=== PATIENT | female | born 1970 | race Caucasian/White ===

== ENCOUNTER 2017-02-28 05:10 | Emergency (ER) | payer MEDICARE, MEDICAID ==
[2017-02-28 05:18] VITALS: BP 138/77
[2017-02-28] MEDS ORDERED: Lidocaine 1% with EPINEPHrine 1:100,000 20 ML MDV INFILT ONE (05:43)
--- NOTE | 2017-02-28 06:01 | EDM.PDOC ---
ED HPI Trauma - General Chief Complaint: Upper Extremity Injury/Pain Stated Complaint: taut hands Time Seen by Provider: 02/28/17 05:35 Source: Reports: Patient, RN, RN notes reviewed History Limitations: Reports: No limitations - History of Present Illness INITIAL COMMENTS - FREE TEXT/NARRATIVE: Patient sensory emergency room at [facility] complaining of tingling of the left hand. The patient states her symptoms began about one week ago. 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 The patient denies any injury or trauma to the left hand. The patient denies any previous surgeries to left hand. The patient states that she feels her symptoms generally over the left hand. The patient denies a left hand pain. The patient is also complaining of a possible abscess over the posterior back. The patient states that she can feel an area of hardness with pain. Symptom Onset Date: 02/21/17 Occurred When: last week Allergies/ADRs: Allergies erythromycin base Allergy (Verified 02/28/17 05:11) Other haloperidol [From Haldol] Allergy (Verified 02/28/17 05:11) Other Home Medications: Ambulatory Orders ARIPiprazole [Abilify] 20 mg PO DAILY 11/06/16 [Confirmed 02/28/17] Aspirin [Halfprin] 81 mg PO DAILY 11/06/16 [Confirmed 02/28/17] Benztropine [Cogentin] 1 mg PO BEDTIME 11/06/16 [Confirmed 02/28/17] Escitalopram [Lexapro] 30 mg PO QPM 11/06/16 [Confirmed 02/28/17] Ferrous Sulfate 325 mg PO DAILY 11/06/16 [Confirmed 02/28/17] Ibuprofen 600 mg PO TID 11/06/16 [Confirmed 02/28/17] Levothyroxine 75 mcg PO DAILY 11/06/16 [Confirmed 02/28/17] Multivitamin [Multivitamins] 1 tab PO DAILY 11/06/16 [Confirmed 02/28/17] Sennosides/Docusate Sodium [Senna-Docusate Sodium] 1 - 6 tab PO DAILY PRN [Confirmed 02/28/17] Simvastatin [Zocor] 20 mg PO BEDTIME 11/06/16 [Confirmed 02/28/17] cloZAPine [Clozapine Odt] 50 mg PO ASDIRECTED 11/06/16 [Confirmed 02/28/17] cloZAPine [Clozapine Odt] 350 mg PO BEDTIME 11/06/16 [Confirmed 02/28/17] metFORMIN [Glucophage XR] 500 mg PO BID 11/06/16 [Confirmed 02/28/17] Cephalexin 500 mg PO TID #30 capsule 02/28/17 Past Medical History Gastrointestinal History: Reports: Chronic constipation Psychiatric History: Reports: Anxiety, Depression Endocrine/Metabolic History: Reports: Other (see below) Other Endocrine/Metabolic History: borderline diabetic - Past Surgical History GI Surgical History: Reports: Appendectomy Social & Family History - Tobacco Use Smoking Status *Q: Never Smoker Review of Systems - Review of Systems Review Of Systems: See Below Constitutional: Denies: chills, fever, weakness Respiratory: Denies: Shortness of Breath, Cough Cardiovascular: Denies: chest pain, palpitations Musculoskeletal: Reports: hand pain (Left) Skin: Reports: wound (Left mid back) Neurological: Reports: Tingling (left hand). Denies: Dizziness, Headache, Numbness, Paresthesia Trauma Exam - Physical Exam Exam: See Below Exam Limited By: No limitations General Appearance: Reports: alert, no apparent distress Respiratory Exam: Reports: no respiratory distress, lungs clear, normal breath sounds Cardiovascular: Reports: regular rate, rhythm Extremities: Reports: tenderness (left volar wrist area consistent with possible carpel tunnel syndrome). Denies: pain with movement Neurologic: Reports: alert, oriented x 3 Skin: Reports: Normal color, Warm/dry, Other (infected skin abscess over the mid posterior back; area is flucuant and ready to drain; tender to palpation; erythematous) ED TRAUMA EXTREMITY PROCEDURES - I&D Site: Posterior mid back Skin prep: isopropyl alcohol (alcohol) Local anesthesia: Lidocaine: 1% with epi Local anesthetic volume: 5cc Area incised with: 11 blade Drainage: purulent, large amount Probed to break up loculations: No Packed with: none Sterile dressing: adhesive dressing Complications: No Course - Vital Signs Last Recorded V/S: Last Vital Signs Temp 36.5 C 02/28/17 05:14 Pulse 99 02/28/17 05:14 Resp 20 02/28/17 05:14 BP 138/77 02/28/17 05:14 Pulse Ox 99 02/28/17 05:14 - Orders/Labs/Meds Meds: Medications Discontinued Medications Generic Name Dose Route Start Last Admin Trade Name Matthew PRN Reason Stop Dose Admin Lidocaine/Epinephrine 20 ml 02/28/17 05:43 02/28/17 05:46 Xylocaine 1% With Epinephrine 1:100,000 INFILT 02/28/17 05:44 20 ml ONETIME ONE Administration Departure - Departure Time of Disposition: 06:01 Disposition: Home, Self-Care 01 Condition: good Clinical Impression: Carpal tunnel syndrome, left Abscess of skin and subcutaneous tissue Qualifiers: Site of cutaneous abscess: trunk Site of cutaneous abscess of trunk: back Qualified Code(s): L02.212 - Cutaneous abscess of back [any part, except buttock ] Prescriptions: Cephalexin 500 mg PO TID #30 capsule Referrals: Nimesh Vargas MD [Physician] - Forms: ED Department Discharge Additional Instructions: 1. Keep band aid on for the next 24 hours 2. Wear wrist splint especially during sleeping hours 3. May alternate Tylenol/Advil as needed for pain 4. See Dr. Vargas in clinic for referral to hand specialist 5. Keep boil area clean and dry - Problem List Review Problem List Initiated/Reviewed/Updated: Yes
== END 2017-02-28 06:16 | disposition home or self-care (01) ==
LOC: VM.ED 05:10
DX: G56.02 Carpal tunnel syndrome, left upper limb (principal); L02.212 Cutaneous abscess of back [any part, except buttock and flank]; F41.9 Anxiety disorder, unspecified; F32.9 Major depressive disorder, single episode, unspecified; Z88.1 Allergy status to other antibiotic agents; Z88.5 Allergy status to narcotic agent; Z90.49 Acquired absence of other specified parts of digestive tract; Z79.82 Long term (current) use of aspirin; Z79.899 Other long term (current) drug therapy
CPT/HCPCS: 10060; 87070; 87077; 99283; 99283-GF-25

== ENCOUNTER 2018-04-23 11:03 | Emergency (ER) | payer MEDICARE, MEDICAID ==
[2018-04-23 11:15] VITALS: BP 127/64
[2018-04-23 11:57] LABS: CHLORIDE,CL 107 mmol/L (98-107); SODIUM,NA 137 mmol/L (136-145)
--- NOTE | 2018-04-23 13:52 | EDM.PDOC ---
ED HPI GENERAL MEDICAL PROBLEM - General Chief Complaint: General Stated Complaint: DIZZINESS/WEAKNESS Time Seen by Provider: 04/23/18 11:10 Source of Information: Reports: Patient History Limitations: Reports: No Limitations - History of Present Illness INITIAL COMMENTS - FREE TEXT/NARRATIVE: ptYael presents to ER with complaints of intermittent vertigo that she has been experiencing for several months. She denies any fever or chills. No chest pain or shortness of breath. She states that the vertigo is worse with rotational movement of her head. She has had problems with lightheadedness intermittently before as well. She denies and nausea, vomiting, or diarrhea. Denies any abdominal pain. Duration: Intermittent Location: Reports: Generalized - Related Data Allergies Allergy/AdvReac Type Severity Reaction Status Date / Time erythromycin base Allergy Other Verified 04/23/18 11:20 haloperidol [From Haldol] Allergy Other Verified 04/23/18 11:20 Home Meds: Home Meds Aspirin [Halfprin] 81 mg PO DAILY 11/06/16 [History] Benztropine [Cogentin] 1 mg PO BEDTIME 11/06/16 [History] Escitalopram [Lexapro] 20 mg PO DAILY 11/06/16 [History] Levothyroxine 75 mcg PO DAILY 11/06/16 [History] Multivitamin [Multivitamins] 1 tab PO DAILY 11/06/16 [History] Sennosides/Docusate Sodium [Senna-Docusate Sodium] 1 - 6 tab PO DAILY PRN [History] Simvastatin [Zocor] 20 mg PO BEDTIME 11/06/16 [History] cloZAPine [Clozapine Odt] 50 mg PO ASDIRECTED 11/06/16 [History] metFORMIN [Glucophage XR] 500 mg PO BID 11/06/16 [History] [place]/Min Oil/Mercedes/Wool Alcoh [Eucerin Creme] 1 applic TOP BID 10/11/17 [ History] ARIPiprazole [Abilify] 20 mg PO DAILY 04/23/18 [History] Escitalopram [Lexapro] 10 mg PO BEDTIME 04/23/18 [History] Ranitidine HCl [Zantac] 150 mg PO BID 04/23/18 [History] Past Medical History HEENT History: Reports: Cataract Cardiovascular History: Reports: High Cholesterol, Hypertension Gastrointestinal History: Reports: Chronic Constipation Psychiatric History: Reports: Anxiety, Bipolar, Depression, Schizophrenia Endocrine/Metabolic History: Reports: Hypothyroidism, Obesity/BMI 30+, Other ( See Below) Other Endocrine/Metabolic History: borderline diabetic Hematologic History: Reports: Anemia - Past Surgical History GI Surgical History: Reports: Appendectomy Social & Family History - Tobacco Use Smoking Status *Q: Unknown Ever Smoked ED ROS GENERAL - Review of Systems Review Of Systems: See Below Constitutional: Reports: No Symptoms HEENT: Reports: Vertigo Respiratory: Reports: No Symptoms Cardiovascular: Reports: No Symptoms Endocrine: Reports: No Symptoms GI/Abdominal: Reports: No Symptoms : Reports: No Symptoms Musculoskeletal: Reports: No Symptoms Skin: Reports: No Symptoms Neurological: Reports: No Symptoms Psychiatric: Reports: No Symptoms Hematologic/Lymphatic: Reports: No Symptoms Immunologic: Reports: No Symptoms ED EXAM, GENERAL - Physical Exam Exam: See Below Exam Limited By: No Limitations General Appearance: Alert, WD/WN, No Apparent Distress Eye Exam: Bilateral Eye: EOMI, Normal Fundi, Nystagmus (left beating nystagmus with rotation of head), PERRL Ears: Normal External Exam, Normal Canal, Hearing Grossly Normal, Normal TMs Ear Exam: Bilateral Ear: Auricle Normal, Canal Normal, TM normal Nose: Normal Inspection, Normal Mucosa, No Blood Throat/Mouth: Normal Inspection, Normal Lips, Normal Teeth, Normal Gums, Normal Oropharynx, Normal Voice, No Airway Compromise Head: Atraumatic, Normocephalic Neck: Normal Inspection, Supple, Non-Tender, Full Range of Motion Respiratory/Chest: No Respiratory Distress, Lungs Clear, Normal Breath Sounds, No Accessory Muscle Use, Chest Non-Tender Cardiovascular: Normal Peripheral Pulses, Regular Rate, Rhythm, No Edema, No Gallop, No JVD, No Murmur, No Rub GI/Abdominal: Normal Bowel Sounds, Soft, Non-Tender, No Organomegaly, No Distention, No Abnormal Bruit, No Mass (Female) Exam: Deferred Rectal (Female) Exam: Deferred Back Exam: Normal Inspection, Full Range of Motion, NT Extremities: Normal Inspection, Normal Range of Motion, Non-Tender, Normal Capillary Refill, No Pedal Edema Neurological: Alert, Oriented, CN II-XII Intact, Normal Cognition, Normal Gait, Normal Reflexes, No Motor/Sensory Deficits Psychiatric: Normal Affect, Normal Mood Skin Exam: Warm, Dry, Intact, Normal Color, No Rash Lymphatic: No Adenopathy Course - Vital Signs Last Recorded V/S: Last Vital Signs Temp 36.6 C 04/23/18 11:10 Pulse 90 04/23/18 11:10 Resp 18 04/23/18 11:10 BP 127/64 04/23/18 11:10 Pulse Ox 96 04/23/18 11:10 - Orders/Labs/Meds Labs: Laboratory Tests 04/23/18 04/23/18 Range/Units 11:30 11:30 WBC 9.1 (4.0-10.0) x10^3/uL RBC 4.02 (4.00-5.50) x10^6/uL Hgb 11.1 L (12.0-16.0) g/dL Hct 35.4 (33.0-47.0) % MCV 88.1 D (78.0-93.0) fL MCH 27.6 (26.0-32.0) pg MCHC 31.4 L (32.0-36.0) g/dL RDW Coeff of José Antonio 14.7 (10.0-15.0) % Plt Count 268 (130-400) x10^3/uL Add Manual Diff Yes Neutrophils % (Manual) 71 (50-80) % Lymphocytes % (Manual) 26 (25-50) % Monocytes % (Manual) 3 (2-11) % Platelet Estimate Adequate Hypochromasia 1+ slight H Sodium 137 (136-145) mmol/L Potassium 4.4 (3.5-5.1) mmol/L Chloride 107 (98-107) mmol/L Carbon Dioxide 27 (21-32) mmol/L Anion Gap 7.4 L (10-20) mmol/L BUN 14 (7-18) mg/dL Creatinine 0.7 (0.55-1.02) mg/dL Est Cr Clr Drug Dosing TNP Estimated GFR (MDRD) > 60 Glucose 96 (74-106) mg/dL Calcium 8.4 L (8.5-10.1) mg/dL Corrected Calcium 9.44 (8.5-10.1) mg/dL Total Bilirubin 0.3 (0.2-1.0) mg/dL AST 16 (15-37) U/L ALT 22 (14-59) U/L Alkaline Phosphatase 102 (46-116) U/L C-Reactive Protein 0.8 (<=0.9) mg/dL Total Protein 6.7 (6.4-8.2) g/dL Albumin 2.7 L (3.4-5.0) g/dL Globulin 4.0 Albumin/Globulin Ratio 0.68 Departure - Departure Time of Disposition: 13:00 Disposition: Home, Self-Care 01 Clinical Impression: BPPV (benign paroxysmal positional vertigo) - Discharge Information Instructions: Vertigo, [id number] Referrals: Taryn Holt MD [Primary Care Provider] - Forms: ED Department Discharge Additional Instructions: Follow-up in the clinic in 7-10 days. Drink plenty of fluids. Return to ER if chest pain, shortness of breath worse than normal, or difficulty with speaking/walking.
== END 2018-04-23 12:31 | disposition home or self-care (01) ==
LOC: VM.ED 11:03
DX: H81.10 Benign paroxysmal vertigo, unspecified ear (principal); E78.00 Pure hypercholesterolemia, unspecified; I10 Essential (primary) hypertension; E03.9 Hypothyroidism, unspecified; Z88.1 Allergy status to other antibiotic agents; Z79.82 Long term (current) use of aspirin; Z88.5 Allergy status to narcotic agent; Z79.899 Other long term (current) drug therapy; Z79.84 Long term (current) use of oral hypoglycemic drugs
CPT/HCPCS: 36415; 80053; 85025; 86140; 99284; 99284-GF

== ENCOUNTER 2020-07-24 08:38 | Emergency (ER) | payer MEDICARE, MEDICAID ==
[2020-07-24] MEDS ORDERED: Ondansetron 4 MG Tab.DIS PO ONE (09:17)
[2020-07-24 09:18] VITALS: BP 128/86; PULSE 89
[2020-07-24 09:58] LABS: CHLORIDE,CL 105 mmol/L (98-107); SODIUM,NA 143 mmol/L (136-145)
[2020-07-24 09:59] LABS: ANION GAP 18.1 mmol/L (10-20)
--- NOTE | 2020-07-24 10:43 | EDM.PDOC ---
ED HPI GENERAL MEDICAL PROBLEM - General Chief Complaint: Gastrointestinal Problem Stated Complaint: WEEK NAUSEA Time Seen by Provider: 07/24/20 08:50 Source of Information: Reports: Patient History Limitations: Reports: No Limitations - History of Present Illness INITIAL COMMENTS - FREE TEXT/NARRATIVE: Pt. presents to ER via [employer] cab. Pt. states that she has been experiencing nausea for a week. She states that she has had loose stools as well, but has not had diarrhea. Denies any focal abdominal discomfort. She stated to nursing that she has not been vomiting, but told me she "once" yesterday. Denies any fever or chills. No chest pain or shortness of breath. Denies any ill contacts. She states that she may not be drinking enough water, but states that she is able to keep it down. Denies any cough, sore throat, or chest congestion. Location: Reports: Generalized - Related Data Allergies Allergy/AdvReac Type Severity Reaction Status Date / Time erythromycin base Allergy Other Verified 07/24/20 09:06 haloperidol [From Haldol] Allergy Other Verified 07/24/20 09:06 Home Meds: Home Meds Aspirin [Halfprin] 81 mg PO DAILY 11/06/16 [History] Benztropine [Cogentin] 1 mg PO BEDTIME 11/06/16 [History] Escitalopram [Lexapro] 20 mg PO DAILY 11/06/16 [History] Levothyroxine 75 mcg PO DAILY 11/06/16 [History] Multivitamin [Multivitamins] 1 tab PO DAILY 11/06/16 [History] Sennosides/Docusate Sodium [Senna-Docusate Sodium] 1 - 6 tab PO DAILY PRN 11/06/16 [History] Simvastatin [Zocor] 20 mg PO BEDTIME 11/06/16 [History] cloZAPine [Clozapine Odt] 50 mg PO ASDIRECTED 11/06/16 [History] metFORMIN [Glucophage XR] 500 mg PO BID 11/06/16 [History] [place]/Min Oil/Mercedes/Wool Alcoh [Eucerin Creme] 1 applic TOP BID 10/11/17 [History] ARIPiprazole [Abilify] 20 mg PO DAILY 04/23/18 [History] Escitalopram [Lexapro] 10 mg PO BEDTIME 04/23/18 [History] raNITIdine HCl [Zantac] 150 mg PO BID 04/23/18 [History] Past Medical History HEENT History: Reports: Cataract Cardiovascular History: Reports: High Cholesterol, Hypertension Gastrointestinal History: Reports: Chronic Constipation Psychiatric History: Reports: Anxiety, Bipolar, Depression, Schizophrenia Endocrine/Metabolic History: Reports: Hypothyroidism, Obesity/BMI 30+, Other (See Below) Other Endocrine/Metabolic History: borderline diabetic Hematologic History: Reports: Anemia - Past Surgical History GI Surgical History: Reports: Appendectomy Social & Family History - Tobacco Use Smoking Status *Q: Unknown Ever Smoked ED ROS GENERAL - Review of Systems Review Of Systems: See Below Constitutional: Reports: No Symptoms HEENT: Reports: No Symptoms Respiratory: Reports: No Symptoms Cardiovascular: Reports: No Symptoms Endocrine: Reports: No Symptoms GI/Abdominal: Reports: Diarrhea, Nausea, Vomiting : Reports: No Symptoms Musculoskeletal: Reports: No Symptoms Skin: Reports: No Symptoms Neurological: Reports: No Symptoms Psychiatric: Reports: No Symptoms Hematologic/Lymphatic: Reports: No Symptoms Immunologic: Reports: No Symptoms ED EXAM, GENERAL - Physical Exam Exam: See Below Exam Limited By: No Limitations General Appearance: Alert, WD/WN, No Apparent Distress Eye Exam: Bilateral Eye: EOMI, Normal Fundi, Normal Inspection, PERRL Throat/Mouth: Normal Inspection, Normal Lips, Normal Teeth, Normal Gums, Normal Oropharynx, Normal Voice, No Airway Compromise Head: Atraumatic, Normocephalic Neck: Normal Inspection, Supple, Non-Tender, Full Range of Motion Respiratory/Chest: No Respiratory Distress, Lungs Clear, Normal Breath Sounds, No Accessory Muscle Use, Chest Non-Tender Cardiovascular: Normal Peripheral Pulses, Regular Rate, Rhythm, No Edema, No Gallop, No JVD, No Murmur, No Rub Peripheral Pulses: 4+: Radial (L) GI/Abdominal: Soft, Non-Tender, No Distention, No Mass (Female) Exam: Deferred Rectal (Female) Exam: Deferred Back Exam: Normal Inspection, Full Range of Motion Extremities: Normal Inspection, Normal Range of Motion, Non-Tender, No Pedal Edema, Normal Capillary Refill Neurological: Alert, Oriented, CN II-XII Intact, Normal Cognition, Normal Gait, Normal Reflexes, No Motor/Sensory Deficits Psychiatric: Normal Affect, Normal Mood Skin Exam: Warm, Dry, Intact, Normal Color, No Rash Lymphatic: No Adenopathy Course - Vital Signs Last Recorded V/S: Last Vital Signs Temp 36.4 C 07/24/20 08:50 Pulse 89 07/24/20 08:50 Resp 18 07/24/20 08:50 BP 128/86 07/24/20 08:50 Pulse Ox 97 07/24/20 08:50 - Orders/Labs/Meds Labs: Laboratory Tests 07/24/20 07/24/20 07/24/20 Range/Units 09:25 09:30 09:30 WBC 7.1 (4.0-10.0) x10^3/uL RBC 4.71 (4.00-5.50) x10^6/uL Hgb 13.1 D (12.0-16.0) g/dL Hct 40.8 (33.0-47.0) % MCV 86.6 (78.0-93.0) fL MCH 27.8 (26.0-32.0) pg MCHC 32.1 (32.0-36.0) g/dL RDW Coeff of José Antonio 15.5 H (10.0-15.0) % Plt Count 362 D (130-400) x10^3/uL Add Manual Diff Yes Neutrophils % (Manual) 66 (50-80) % Band Neutrophils % 2 (0-6) % Lymphocytes % (Manual) 21 L (25-50) % Reactive Lymphs % 4 H (0) % Monocytes % (Manual) 7 (2-11) % Nucleated RBCs 1 (0-5) /100WBC Platelet Estimate Adequate Polychromasia Rare Anisocytosis 1+ slight H Spherocytes 1+ slight H Sodium 143 (136-145) mmol/L Potassium 4.1 (3.5-5.1) mmol/L Chloride 105 (98-107) mmol/L Carbon Dioxide 24 (21-32) mmol/L Anion Gap 18.1 (10-20) mmol/L BUN 7 (7-18) mg/dL Creatinine 1.1 H (0.55-1.02) mg/dL Est Cr Clr Drug Dosing TNP Estimated GFR (MDRD) 53 Glucose 111 H (74-106) mg/dL Calcium 8.3 L (8.5-10.1) mg/dL Corrected Calcium 8.86 (8.5-10.1) mg/dL Total Bilirubin 0.4 (0.2-1.0) mg/dL AST 28 (15-37) U/L ALT 31 (14-59) U/L Alkaline Phosphatase 115 (46-116) U/L C-Reactive Protein 2.8 H (<=0.9) mg/dL Total Protein 8.1 (6.4-8.2) g/dL Albumin 3.3 L (3.4-5.0) g/dL Globulin 4.8 Albumin/Globulin Ratio 0.69 Urine Color Yellow (YELLOW) Urine Appearance Slightly cloudy H (CLEAR) Urine pH 6.0 (5.0-8.0) Ur Specific [place] 1.010 Urine Protein Trace H (NEGATIVE) mg/dL Urine Glucose (UA) Negative (NEGATIVE) mg/dL Urine Ketones Negative (NEGATIVE) mg/dL Urine Occult Blood Negative (NEGATIVE) Urine Nitrite Negative (NEGATIVE) Urine Bilirubin Negative (NEGATIVE) Urine Urobilinogen 0.2 (0.2) EU/dL Ur Leukocyte Esterase Negative (NEGATIVE) U Hyaline Cast (Auto) Rare Urine RBC 0-5 (NOT SEEN) /HPF Urine WBC 0-5 (NOT SEEN) /HPF Ur Squamous Epith Cells Moderate H (NEGATIVE) /HPF Urine Bacteria Not seen (NEGATIVE) /HPF Urine Mucus Rare H (NEGATIVE) /LPF Meds: Medications Discontinued Medications Generic Name Dose Route Start Last Admin Trade Name Matthew PRN Reason Stop Dose Admin Ondansetron HCl 4 mg 07/24/20 09:17 07/24/20 09:21 Zofran Odt PO 07/24/20 09:18 4 mg ONETIME ONE Administration Departure - Departure Time of Disposition: 10:15 Disposition: Home, Self-Care 01 Clinical Impression: Gastroenteritis - Discharge Information Instructions: Ondansetron oral dissolving tablet, Viral Gastroenteritis, Adult, [id number] Referrals: Taryn Holt MD [Primary Care Provider] - Forms: ED Department Discharge Additional Instructions: Home to rest. Zofran ODT 4mg every 6 hours for nausea/vomiting Immodium (loperamide) over the counter 1 tab up to 6 times per day as needed for diarrhea Sepsis Event Note (ED) - Evaluation Sepsis Screening Result: No Definite Risk - Focused Exam Vital Signs: Vital Signs Temp Pulse Resp BP Pulse Ox 07/24/20 08:50 36.4 C 89 18 128/86 97 - Assessment/Plan Plan: Home to rest. Zofran ODT 4mg every 6 hours for nausea/vomiting Immodium (loperamide) over the counter 1 tab up to 6 times per day as needed for diarrhea
== END 2020-07-24 10:18 | disposition home or self-care (01) ==
LOC: VM.ED 08:38
DX: K52.9 Noninfective gastroenteritis and colitis, unspecified (principal); I10 Essential (primary) hypertension; F41.9 Anxiety disorder, unspecified; F31.9 Bipolar disorder, unspecified; E03.9 Hypothyroidism, unspecified; E66.9 Obesity, unspecified; Z88.1 Allergy status to other antibiotic agents; Z88.8 Allergy status to other drugs, medicaments and biological substances; Z79.82 Long term (current) use of aspirin; Z79.899 Other long term (current) drug therapy
CPT/HCPCS: 36415; 80053; 81001; 85025; 86140; 99283; A9270; 99284

== ENCOUNTER 2021-07-07 08:15 | Emergency (ER) | payer MEDICARE, MEDICAID ==
[2021-07-07 08:27] VITALS: BP 126/66; PULSE 94
[2021-07-07] MEDS ORDERED: Ondansetron 4 MG Tab.DIS PO ONE (08:32)
[2021-07-07] MEDS ORDERED: ARIPiprazole 5 MG Tab PO ONE (08:41)
--- NOTE | 2021-07-07 08:50 | EDM.PDOC ---
ED HPI GENERAL MEDICAL PROBLEM - General Chief Complaint: Gastrointestinal Problem Stated Complaint: nasuea Time Seen by Provider: 07/07/21 08:20 Source of Information: Reports: Patient History Limitations: Reports: No Limitations - History of Present Illness INITIAL COMMENTS - FREE TEXT/NARRATIVE: Patient comes into the emergency department with nausea. Patient has been seen in the clinic one time and also did a telemedicine visit this past week. Patient has complained of some shortness of breath and some congestion and was given azithromycin to help with that. However she ended up having a telemed visit approximately 2 days later and it was found that she felt that she was having allergic reaction so stopped that medication. It was also noted that she had been off her medications for approximately 2 weeks. Her psychiatry specialist has implemented that she restart her medications in a slow approach and is working with that. Patient states that she has been nauseated today. And it is uncertain if she is been taking her medications. Nursing has pulled up the dictation regarding information from both visits. We will review the education with the patient. Patient states that she does continue to cough up phlegm intermittently but denies any shortness of breath at rest currently, chest pain, blurred vision, night sweats, diaphoresis, fever, chills, abdominal pain, genitourinary concerns, or peripheral edema. - Related Data Allergies Allergy/AdvReac Type Severity Reaction Status Date / Time erythromycin base Allergy Other Verified 07/07/21 08:28 haloperidol [From Haldol] Allergy Other Verified 07/07/21 08:28 Home Meds: Home Meds Aspirin [Halfprin] 81 mg PO DAILY 11/06/16 [History] Benztropine [Cogentin] 1 mg PO BEDTIME 11/06/16 [History] Escitalopram [Lexapro] 20 mg PO DAILY 11/06/16 [History] Levothyroxine 75 mcg PO DAILY 11/06/16 [History] Multivitamin [Multivitamins] 1 tab PO DAILY 11/06/16 [History] Sennosides/Docusate Sodium [Senna-Docusate Sodium] 1 - 6 tab PO DAILY PRN 11/06/16 [History] Simvastatin [Zocor] 20 mg PO BEDTIME 11/06/16 [History] cloZAPine [Clozapine Odt] 50 mg PO ASDIRECTED 11/06/16 [History] metFORMIN [Glucophage XR] 500 mg PO BID 11/06/16 [History] [place]/Min Oil/Mercedes/Wool Alcoh [Eucerin Creme] 1 applic TOP BID 10/11/17 [History] ARIPiprazole [Abilify] 20 mg PO DAILY 04/23/18 [History] Escitalopram [Lexapro] 10 mg PO BEDTIME 04/23/18 [History] raNITIdine HCl [Zantac] 150 mg PO BID 04/23/18 [History] Past Medical History HEENT History: Reports: Cataract Cardiovascular History: Reports: High Cholesterol, Hypertension Gastrointestinal History: Reports: Chronic Constipation Psychiatric History: Reports: Anxiety, Bipolar, Depression, Schizophrenia Endocrine/Metabolic History: Reports: Hypothyroidism, Obesity/BMI 30+, Other (See Below) Other Endocrine/Metabolic History: borderline diabetic Hematologic History: Reports: Anemia - Past Surgical History GI Surgical History: Reports: Appendectomy Social & Family History - Tobacco Use Tobacco Use Status *Q: Unknown Ever Used Tobacco ED ROS GENERAL - Review of Systems Review Of Systems: Comprehensive ROS is negative, except as noted in HPI. Constitutional: Reports: No Symptoms HEENT: Reports: No Symptoms Respiratory: Reports: No Symptoms Cardiovascular: Reports: No Symptoms Endocrine: Reports: No Symptoms GI/Abdominal: Reports: No Symptoms : Reports: No Symptoms Musculoskeletal: Reports: No Symptoms Skin: Reports: No Symptoms Neurological: Reports: No Symptoms Psychiatric: Reports: No Symptoms Hematologic/Lymphatic: Reports: No Symptoms Immunologic: Reports: No Symptoms ED EXAM, GENERAL - Physical Exam Exam: See Below Exam Limited By: No Limitations General Appearance: Alert, WD/WN, No Apparent Distress Ears: Normal External Exam, Normal Canal, Hearing Grossly Normal, Normal TMs Ear Exam: Bilateral Ear: Auricle Normal, Canal Normal, TM normal Nose: Normal Inspection, Normal Mucosa, No Blood Throat/Mouth: Normal Inspection, Normal Lips, Normal Teeth, Normal Gums, Normal Oropharynx, Normal Voice, No Airway Compromise Head: Atraumatic, Normocephalic Neck: Normal Inspection, Supple, Non-Tender, Full Range of Motion Respiratory/Chest: No Respiratory Distress, Lungs Clear, Normal Breath Sounds, No Accessory Muscle Use, Chest Non-Tender Cardiovascular: Normal Peripheral Pulses, Regular Rate, Rhythm, No Edema, No Gallop, No JVD, No Murmur, No Rub GI/Abdominal: Normal Bowel Sounds, Soft, Non-Tender, No Organomegaly, No Distention, No Abnormal Bruit, No Mass Back Exam: Normal Inspection, Full Range of Motion, NT Extremities: Normal Inspection, Normal Range of Motion, Non-Tender, Normal Capillary Refill, No Pedal Edema Neurological: Alert, Oriented, CN II-XII Intact, Normal Cognition, Normal Gait, Normal Reflexes, No Motor/Sensory Deficits Psychiatric: Normal Affect, Normal Mood Skin Exam: Warm, Dry, Intact, Normal Color, Other (bed bug bites and scratches noted on upper arms. dry scaly skin noted. itchy in appearance ) Lymphatic: No Adenopathy Course - Vital Signs Last Recorded V/S: Last Vital Signs Temp 36.3 C 07/07/21 08:20 Pulse 94 07/07/21 08:20 Resp 18 07/07/21 08:20 BP 126/66 07/07/21 08:20 Pulse Ox 96 07/07/21 08:20 - Orders/Labs/Meds Orders: Active Orders 24 hr Category Date Time Status ARIPiprazole [Abilify] Med 07/07/21 08:41 Once 20 mg PO ONETIME ONE Meds: Medications Discontinued Medications Generic Name Dose Route Start Last Admin Trade Name Matthew PRN Reason Stop Dose Admin Ondansetron HCl 4 mg 07/07/21 08:32 07/07/21 08:38 Ondansetron 4 Mg Tab.Dis PO 07/07/21 08:33 4 mg ONETIME ONE Administration Departure - Departure Time of Disposition: 09:00 Disposition: Home, Self-Care 01 Condition: Good Clinical Impression: Nausea - Discharge Information *PRESCRIPTION DRUG MONITORING PROGRAM REVIEWED*: Not Applicable *COPY OF PRESCRIPTION DRUG MONITORING REPORT IN PATIENT ELPIDIO: Not Applicable Instructions: Nausea, Adult Additional Instructions: 1. rest 2. increase your water intake 3. Continue all at home medications- follow the recommendations for slowing increasing the medications per your pysch provider 4. Eat small meals when taking the medications 5. Activity and diet as tolerated 6. Can take over the counter Tylenol for any pain or discomfort 7. Follow up with PCP if symptoms continue, return, or progress 8. Call with any questions or concerns Sepsis Event Note (ED) - Focused Exam Vital Signs: Vital Signs Temp Pulse Resp BP Pulse Ox 07/07/21 08:20 36.3 C 94 18 126/66 96 - My Orders Last 24 Hours: My Active Orders 07/07/21 08:41 ARIPiprazole [Abilify] 20 mg PO ONETIME ONE - Assessment/Plan Last 24 Hours: My Active Orders 07/07/21 08:41 ARIPiprazole [Abilify] 20 mg PO ONETIME ONE Assessment:: 1. nausea 2. Poor medication compliance Plan: 1.education regarding medication compliance. records show patient is slowing being started on her medications. Education provided what medications she needs to take today. She took them Thursday but not the last two days. Discussed with the patient community health has been notified per her doctor to assist in medication compliance. 2. zofran ODT given in ER today 3. Education provided the patient regarding activity, diet, rest, [id number] medication modalities, and follow-up care was provided 4. Patient and family are agreeable to the above plan of care 5. All questions and concerns were addressed with the patient and family prior to discharg
[2021-07-07] MEDS ORDERED: Take Home: Ondansetron 4 MG Tab.DIS, 2 Tab Pack PO ONE (08:53)
== END 2021-07-07 09:04 | disposition home or self-care (01) ==
LOC: VM.ED 08:15
DX: R11.0 Nausea (principal); E78.00 Pure hypercholesterolemia, unspecified; I10 Essential (primary) hypertension; E03.9 Hypothyroidism, unspecified; E66.9 Obesity, unspecified; Z68.44 Body mass index [BMI] 60.0-69.9, adult; Z88.5 Allergy status to narcotic agent; Z88.1 Allergy status to other antibiotic agents; Z79.82 Long term (current) use of aspirin; Z79.84 Long term (current) use of oral hypoglycemic drugs; Z79.899 Other long term (current) drug therapy
CPT/HCPCS: 99283; 99284; A9270-GY

== ENCOUNTER 2022-08-28 13:54 | Emergency (ER) | payer MEDICARE, MEDICAID ==
[2022-08-28 14:16] VITALS: BP 155/86; PULSE 117
[2022-08-28] MEDS ORDERED: OLANZapine 10 MG Vial IM ONE (14:24)
== END 2022-08-28 15:07 | disposition home or self-care (01) ==
LOC: VM.ED 13:54
DX: F20.89 Other schizophrenia (principal); E78.00 Pure hypercholesterolemia, unspecified; I10 Essential (primary) hypertension; E03.9 Hypothyroidism, unspecified; E66.9 Obesity, unspecified; Z68.30 Body mass index [BMI] 30.0-30.9, adult; Z88.1 Allergy status to other antibiotic agents; Z88.5 Allergy status to narcotic agent; Z79.82 Long term (current) use of aspirin; Z79.84 Long term (current) use of oral hypoglycemic drugs; Z79.899 Other long term (current) drug therapy; Z91.199 Patient's noncompliance with other medical treatment and regimen due to unspecified reason
CPT/HCPCS: 96372; 99284; J3490

== ENCOUNTER 2022-12-16 17:11 | Emergency (ER) | payer MEDICARE, MEDICAID ==
[2022-12-16] MEDS ORDERED: Sodium Chloride 0.9% 10 ML Syringe FLUSH PRN (17:26)
[2022-12-16] MEDS ORDERED: Lactated Ringers 1,000 ML IV ONE (17:28)
[2022-12-16 17:43] LABS: PTT,PARTIAL THROMBOPLSTIN TIME 28.8 SEC (20.5-30.9)
[2022-12-16 17:57] LABS: CHLORIDE,CL 102 mmol/L (98-107); SODIUM,NA 141 mmol/L (136-145)
[2022-12-16 17:59] LABS: ACETAMINOPHEN 0 ug/ml (10-30); ANION GAP 18.5 mmol/L (5-15); ESTIMATED GFR 68 mL/min (>=60)
[2022-12-16 18:16] LABS: CORONAVIRUS COVID-19 NAA NEGATIVE (NEGATIVE); RESPIRATORY SYNCYTIAL VIR NAA NEGATIVE (NEGATIVE)
[2022-12-16 18:42] VITALS: BP 147/74; PULSE 95
[2022-12-16 18:55] LABS: BARBITURATE SCREEN,URINE NEGATIVE (NEGATIVE); BENZODIAZEPINES SCREEN,URINE NEGATIVE (NEGATIVE); BUPRENORPHINE SCREEN,URINE NEGATIVE (NEGATIVE); METHAMPHETAMINE SCREEN, URINE NEGATIVE (NEGATIVE); THC SCREEN,URINE 50 NG/ML NEGATIVE (NEGATIVE)
== END 2022-12-16 19:45 ==
LOC: VM.ED 17:11 → SUPCPDRO 17:11 → VM.ED 19:45
DX: F25.1 Schizoaffective disorder, depressive type (principal); E78.00 Pure hypercholesterolemia, unspecified; I10 Essential (primary) hypertension; E03.9 Hypothyroidism, unspecified; E66.9 Obesity, unspecified; Z88.8 Allergy status to other drugs, medicaments and biological substances; Z88.1 Allergy status to other antibiotic agents; Z79.82 Long term (current) use of aspirin; Z79.899 Other long term (current) drug therapy; Z20.822 Contact with and (suspected) exposure to COVID-19
CPT/HCPCS: 0241U; 70450; 80053; 80143; 80179; 80305-QW; 80307; 81001; 81025; 82140; 83735; 84100; 84443; 85025; 85610; 85730; 96360; 99284; 99285-25; J7120